=== PATIENT | female | born 1960 ===

== ENCOUNTER 2018-03-14 13:02 | Emergency (ER) | payer SELFPAY ==
[2018-03-14 13:15] VITALS: BP 143/84; PULSE 88; RESP 20; TEMP 98.7; O2SAT 100
--- NOTE | 2018-03-14 13:51 | ED PDOC ---
HPI: Dental Pain/Injury Time Seen by Provider: 03/14/18 13:16 Chief Complaint (Nursing): Dental Pain Chief Complaint (Provider): Dental pain History Per: Patient History/Exam Limitations: no limitations Onset/Duration Of Symptoms: Days (July) Current Symptoms Are (Timing): Still Present Additional Complaint(s): Alison Peralta is a 57 year old female, with no significant past medical history, who presents to the emergency department complaining of an ongoing dental pain since post implants in July. pt. has seen two different oral surgeon/dentist since and was told she has an infection. Patient has an appointment with Dr. Annmarie Madrigal, oral surgeon, at 15:00 tomorrow but wanted dental referral to be seen sooner and is requesting more oral surgeons to contact. She denies any fever, chills or other medical complaints. PMD: None provided. Past Medical History Reviewed: Historical Data, Nursing Documentation, Vital Signs Vital Signs: Last Vital Signs Temp 98.7 F 03/14/18 13:13 Pulse 88 03/14/18 13:13 Resp 20 03/14/18 13:13 BP 143/84 03/14/18 13:13 Pulse Ox 100 03/14/18 13:13 - Medical History PMH: No Chronic Diseases - Surgical History Surgical History: No Surg Hx - Family History Family History: States: Unknown Family Hx - Home Medications Home Medications: Ambulatory Orders Medication Instructions Recorded Ibuprofen [Motrin] 600 mg PO Q6 PRN #15 tab 06/17/16 Mag&Al/Simet/Diphen/Lido [First 5 ml MM BID PRN #1 kit 06/25/16 Magic Mouthwash] Ibuprofen [Ibu] 400 mg PO Q8 #15 tablet 03/14/18 - Allergies Allergies/Adverse Reactions: Allergies Allergy/AdvReac Type Severity Reaction Status Date / Time Penicillins Allergy RASH Verified 03/14/18 13:13 Review of Systems ROS Statement: Except As Marked, All Systems Reviewed And Found Negative Constitutional: Negative for: Fever, Chills ENT: Positive for: Mouth Pain (dental) Physical Exam - Reviewed Nursing Documentation Reviewed: Yes Vital Signs Reviewed: Yes - Physical Exam Appears: Positive for: No Acute Distress Head Exam: Positive for: ATRAUMATIC, NORMOCEPHALIC Skin: Positive for: Normal Color, Warm, Dry Eye Exam: Positive for: Normal appearance ENT: Positive for: Normal ENT Inspection (No erythema, swelling or obvious signs of infection), Other (Mouth: edentous, no gingival swelling, tenderness or intraoral abscess) Neck: Positive for: Painless ROM Respiratory: Negative for: Respiratory Distress Extremity: Positive for: Normal ROM (upper and lower extremities). Negative for : Deformity Neurologic/Psych: Positive for: Alert, Oriented - ECG O2 Sat by Pulse Oximetry: 100 (RA) Pulse Ox Interpretation: Normal Medical Decision Making Medical Decision Making: Time: 13:16 Initial Impression: dental pain Initial Plan: --Motrin tab 400 mg PO 13:40 --Patient has an appointment with Dr. Madrigal at 15:00 tomorrow. There is no change in character of quality of dental pain over past couple months, pt. is tolerating po, no avert intraoral infection; no indication for further work up or consults in ED. Dental pain instructions were provided and patient was advised to follow up with dental appointment tomorrow. Scribe Attestation: Documented by Rigo Mccormick, acting as a scribe for Saima Walker PA-C Provider Scribe Attestation: All medical record entries made by the Scribe were at my direction and personally dictated by me. I have reviewed the chart and agree that the record accurately reflects my personal performance of the history, physical exam, medical decision making, and the department course for this patient. I have also personally directed, reviewed, and agree with the discharge instructions and disposition. Disposition - Clinical Impression Clinical Impression: Pain, dental - Disposition Referrals: Count Includes [facility] [Outside] Disposition: Routine/Home Disposition Time: 13:45 Condition: STABLE Additional Instructions: Follow up with dentist Dr. Madrigal tomorrow at 3 pm as previously scheduled Prescriptions: Ibuprofen [Ibu] 400 mg PO Q8 #15 tablet Instructions: Dental Pain (DC) Forms: [facility] (Nepali), [facility] (Danish) Print Language: PERUVIAN
== END 2018-03-14 13:45 | disposition home or self-care (01) ==
LOC: H.ER 13:02
DX: K08.89 Other specified disorders of teeth and supporting structures (principal); Z88.0 Allergy status to penicillin